=== PATIENT | male | born 1945 | race Caucasian/White ===

== ENCOUNTER 2016-05-23 05:48 | Emergency (ER) | payer MEDICARE ==
[2016-05-23 05:59] VITALS: RESP 18
[2016-05-23] MEDS ORDERED: MORPHINE SULFATE 4 MG/ML SYRINGE IV STA (06:17)
[2016-05-23] MEDS ORDERED: KETOROLAC 30 MG/ML 1 ML VIAL IVP STA (06:17)
--- NOTE | 2016-05-23 06:24 | ED ---
Abdominal Pain HPI - General Source: patient Mode of arrival: ambulatory Limitations: no limitations - History of Present Illness MD Complaint: flank pain -: days(s) Location: R flank Radiation: none Migration to: no migration Severity: moderate Quality: sharp Consistency: constant Improves With: nothing Worsens With: nothing Associated Symptoms: denies other symptoms <Ean Abbasi - Last Filed: 05/23/16 06:18> <Florentino Hartman - Last Filed: 05/23/16 09:52> - General Chief Complaint: Abdominal Pain Stated Complaint: Possible Kidney Stone Time Seen by Provider: 05/23/16 06:10 - History of Present Illness Initial Comments: 's patient is 70-year-old man with history of previous kidney stones, who states that he started having similar symptoms this morning when he got up to go to the gym. The patient notes right flank pain, that he states is sharp, constant, moderately intense. The pain is worse if he sits with his back against something. He has not noted any relieving factors. No coming symptoms. He has not had any fever or chill, chest pain, cough, shortness of breath, abdominal pain, nausea, vomiting, or change in bowel movements. Patient denies any pain or weakness to the legs. (Ean Abbasi) - Related Data Home Medications Medication Instructions Recorded Confirmed Multivitamins, Thera [Theragran] 1 tab PO DAILY 08/05/14 05/23/16 Omeprazole 20 mg PO DAILY PRN 06/17/15 05/23/16 Doxycycline Hyclate [Vibramycin] 100 mg PO BID 05/23/16 05/23/16 Fish Oil/Dha/Epa [Fish Oil 1,200 1 cap PO DAILY 05/23/16 05/23/16 mg Fish Oil] Previous Rx's Medication Instructions Recorded Hydrocodone/Acetaminophen [[place] 2 each PO Q6HR PRN #20 tab 05/23/16 5-325] Allergies Allergy/AdvReac Type Severity Reaction Status Date / Time No Known Allergies Allergy Verified 05/23/16 07:55 Review of Systems ROS Other: All systems not noted in ROS Statement are negative. Constitutional: Denies: fever, chills Respiratory: Denies: cough, dyspnea Cardiovascular: Denies: chest pain, palpitations, edema Gastrointestinal: Reports: as per HPI. Denies: abdominal pain, nausea, vomiting , diarrhea Genitourinary: Denies: dysuria, hematuria, testicular pain Musculoskeletal: Reports: as per HPI, back pain Skin: Denies: rash Neurological: Denies: weakness, numbness, paresthesias <AyleenEan - Last Filed: 05/23/16 06:18> ROS Other: All systems not noted in ROS Statement are negative. <Florentino Hartman - Last Filed: 05/23/16 09:52> ROS Statement: Those systems with pertinent positive or pertinent negative responses have been documented in the HPI. 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, prostate cancer tx with radiation History of Any Multi-Drug Resistant Organisms: None Reported MDRO Source:: "MRSA carrier in blood tests" Past Surgical History: Ear Surgery, Hernia Repair, Orthopedic Surgery Additional Past Surgical History / Comment(s): brain surgery to remove benign tumors, alannah knee arthroscopic, rt knee replacement, surgery for fx facial bone Past Anesthesia/Blood Transfusion Reactions: Motion Sickness, Postoperative Nausea & Vomiting (PONV) Past Psychological History: No Psychological Hx Reported Smoking Status: Never smoker Past Alcohol Use History: Occasional Past Drug Use History: None Reported - Past Family History Mother Family Medical History: Cancer <AyleenEan - Last Filed: 05/23/16 06:18> General Exam Limitations: no limitations General appearance: alert, in no apparent distress Head exam: Present: atraumatic, normocephalic Respiratory exam: Present: normal lung sounds bilaterally. Absent: respiratory distress, wheezes, rales, rhonchi, stridor Cardiovascular Exam: Present: regular rate, normal rhythm, normal heart sounds. Absent: systolic murmur, diastolic murmur, rubs, gallop GI/Abdominal exam: Present: soft. Absent: distended, tenderness, guarding, rebound, mass, pulsatile mass, hernia Back exam: Present: CVA tenderness (R). Absent: full ROM, tenderness, CVA tenderness (L) Neurological exam: Present: alert Skin exam: Present: warm, dry, intact, normal color. Absent: rash <Ean Abbasi - Last Filed: 05/23/16 06:18> Medical Decision Making <Ean Abbasi - Last Filed: 05/23/16 06:18> - Lab Data Result diagrams: 05/23/16 06:51 05/23/16 06:51 - Radiology Data Radiology results: report reviewed (Computed tomography scan abdomen pelvis shows nonobstructing bilateral renal stones. ), image reviewed (KUB shows no acute process) <Florentino Hartman - Last Filed: 05/23/16 09:52> - Medical Decision Making Patient twice reexamined and symptom-free. Patient complains of discomfort below the right CVA region. There is minimal tenderness there. No abdominal tenderness. Pedal pulses 2/4 bilateral. Patient and family updated on results and need for follow-up. Also updated on mild elevation of lipase. (Florentino Hartman) - Lab Data Lab Results 05/23/16 05/23/16 05/23/16 Range/Units 06:51 06:51 07:37 WBC 3.8 (3.8-10.6) k/uL RBC 4.77 (4.30-5.90) m/uL Hgb 15.7 (13.0-17.5) gm/dL Hct 45.4 (39.0-53.0) % MCV 95.3 (80.0-100.0) fL MCH 33.0 (25.0-35.0) pg MCHC 34.6 (31.0-37.0) g/dL RDW 12.8 (11.5-15.5) % Plt Count 142 L (150-450) k/uL Neutrophils % 63 % Lymphocytes % 27 % Monocytes % 6 % Eosinophils % 1 % Basophils % 1 % Neutrophils # 2.4 (1.3-7.7) k/uL Lymphocytes # 1.0 (1.0-4.8) k/uL Monocytes # 0.2 (0-1.0) k/uL Eosinophils # 0.0 (0-0.7) k/uL Basophils # 0.0 (0-0.2) k/uL Sodium 144 (137-145) mmol/L Potassium 4.8 (3.5-5.1) mmol/L Chloride 109 H (98-107) mmol/L Carbon Dioxide 23 (22-30) mmol/L Anion Gap 12 mmol/L BUN 36 H (9-20) mg/dL Creatinine 1.04 (0.66-1.25) mg/dL Est GFR (MDRD) Af Amer >60 (>60 ml/min/1.73 sqM) Est GFR (MDRD) Non-Af >60 (>60 ml/min/1.73 sqM) Glucose 96 (74-99) mg/dL Calcium 10.0 (8.4-10.2) mg/dL Total Bilirubin 0.7 (0.2-1.3) mg/dL AST 36 (17-59) U/L ALT 31 (21-72) U/L Alkaline Phosphatase 70 (38-126) U/L Total Protein 7.4 (6.3-8.2) g/dL Albumin 4.4 (3.5-5.0) g/dL Amylase 79 (30-110) U/L Lipase 323 H (23-300) U/L Urine Color Dark Yellow Urine Appearance Cloudy (Clear) Urine pH 6.0 (5.0-8.0) Ur Specific [place] 1.031 (1.001-1.035) Urine Protein 1+ H (Negative) Urine Glucose (UA) Negative (Negative) Urine Ketones Negative (Negative) Urine Blood Negative (Negative) Urine Nitrite Negative (Negative) Urine Bilirubin Negative (Negative) Urine Urobilinogen <2.0 (<2.0) mg/dL Ur Leukocyte Esterase Negative (Negative) Urine RBC 6 H (0-5) /hpf Ur Squamous Epith Cells 1 (0-4) /hpf Calcium Oxalate Crystal Few H (None) /hpf Amorphous Sediment Rare H (None) /hpf Urine Mucus Many H (None) /hpf Disposition <Ean Abbasi - Last Filed: 05/23/16 06:18> <Florentino Hartman - Last Filed: 05/23/16 09:52> Clinical Impression: Flank pain Disposition: HOME SELF-CARE Condition: Stable Instructions: Abdominal Pain (ED), Back Pain (ED) Additional Instructions: Please follow-up with your primary care physician in the next day or 2 for recheck. Please have your primary care physician review labs and CT report done today. Also have your doctor follow-up with mild elevation of lipase. Return for increased pain, fevers, vomiting, worsening or changing symptoms or other concerns. Prescriptions: Hydrocodone/Acetaminophen [[place] 5-325] 2 each PO Q6HR PRN #20 tab PRN Reason: Pain Referrals: Eliel Garza MD [Primary Care Provider] - 1-2 days
[2016-05-23 07:03] LABS: Basophils % (A) 1 %; CH 33.6; CHCM 35.5; Eosinophils % (A) 1 %; HCT 45.4 % (39.0-53.0); HDW 2.71; HGB 15.7 gm/dL (13.0-17.5); Luc % (Auto) 3; Lymphocytes % (A) 27 %; MCHC 34.6 g/dL (31.0-37.0); MCV 95.3 fL (80.0-100.0); Mean Platelet Volume 8.2; Monocytes # (A) 0.2 k/uL (0-1.0); Monocytes % (A) 6 %; Neutrophils # (A) 2.4 k/uL (1.3-7.7); Neutrophils % (A) 63 %; RBC 4.77 m/uL (4.30-5.90); RDW 12.8 % (11.5-15.5); WBC 3.8 k/uL (3.8-10.6); WBC (Perox) 3.85
--- NOTE | 2016-05-23 07:17 | XR ---
EXAMINATION TYPE: XR KUB DATE OF EXAM: 05/23/2016 7:01 AM CLINICAL DATA: 70-year-old male with abdominal pain, PH[facility] COMPARISON: FINDINGS: Lung bases are clear. No evidence for free intraperitoneal air. No dilated small bowel or air-fluid levels. Scattered air and stool seen throughout the colon extendi ng distally into the rectum. Moderate stool burden. No suspicious calcifications identified. IMPRESSION: Moderate stool burden. No evidence of bowel obstruction or free intraperitoneal air.
[2016-05-23 07:20] LABS: Amylase 79 U/L (30-110); Anion Gap 12 mmol/L; Carbon Dioxide 23 mmol/L (22-30); Chloride 109 mmol/L (98-107); Glucose 96 mg/dL (74-99); Non-African American GFR(MDRD) >60 (>60 ml/min/1.73 sqM); Sodium 144 mmol/L (137-145); Total Bilirubin 0.7 mg/dL (0.2-1.3); Total Protein 7.4 g/dL (6.3-8.2)
[2016-05-23 07:22] LABS: Blood Urea Nitrogen 36 mg/dL (9-20); Potassium 4.8 mmol/L (3.5-5.1)
[2016-05-23 07:23] LABS: ALT 31 U/L (21-72); AST 36 U/L (17-59); Alkaline Phosphatase 70 U/L (38-126)
[2016-05-23 08:11] LABS: Amorphous Sediment,Urine Rare /hpf; Appearance,Urine Cloudy (Clear); Bilirubin,Urine Negative (Negative); Calcium Oxalate Crystals,Urine Few /hpf; Glucose,Urine (UA) Negative (Negative); Ketones,Urine Negative (Negative); Leukocyte Esterase,Urine Negative (Negative); Mucus,Urine Many /hpf; Nitrite,Urine Negative (Negative); Particle Count 11793; Protein,Urine 1+ (Negative); RBC,Urine 6 /hpf (0-5); Specific Gravity,Urine 1.031 (1.001-1.035); Squamous Epithelial Cell,Urine 1 /hpf (0-4); UA Billing (MACRO vs. MICRO) MICRO; Urobilinogen,Urine <2.0 mg/dL (<2.0)
[2016-05-23 09:10] VITALS: PULSE 44
--- NOTE | 2016-05-23 09:33 | CT ---
EXAMINATION TYPE: CT abdomen pelvis wo con DATE OF EXAM: 05/23/2016 8:54 AM COMPARISON: NONE INDICATION: Pain DLP: 1087 mGycm, Automated exposure control for dose reduction was used. CONTRAST: 0 mL of Omnipaque 300. Study performed without Oral Contrast TECHNIQUE: Axial images were obtained from above the diaphragm to the pubic rami in the axial plane a t 5 mm thick sections. Reconstructed images are reviewed on the computer in the coronal plane. FINDINGS: Limited CT sections are obtained the lung bases. Mild compressive atelectasis is within the dependen t portions of the lung bases bilaterally.. CT ABDOMEN: Liver: Normal Spleen: Normal Pancreas: Normal Adrenal glands: The adrenal glands are normal. Gallbladder: Normal Kidneys: No masses are evident. No hydronephrosis is present. There are 2 hypodensities on the supe rior pole left kidney measuring 0.9 cm. Small cyst too small to classify are likely present. There is a cyst measuring 1.3 cm and one Hounsfield unit on the inferior medial right kidney compatible with a simple cyst. A 1.3 cm cyst measuring 0 Hounsfield unit is within the anterior mid right kidney. Fo ur punctate calcifications are within the inferior pole of the right kidney measuring 0.3, 0.3, 0.3, and 0.2 cm in size. Two punctate calcifications are also within the inferior pole left kidney measuri ng 0.3 and 0.2 cm in size. No hydronephrosis or hydroureter is evident. Aorta: Vascular calcification is within the aorta. Inferior vena cava: Normal. CT PELVIS: Loops of bowel within the abdomen and pelvis are normal. Fecal debris is within the colon. Appendix: Normal as visualized. Urinary bladder: Decompressed with limited evaluation. Genitourinary structures: Prostate is normal Osseous structures: No suspicious lytic or sclerotic lesions. Facet changes are within the lower lumb ar spine IMPRESSIONS: 1. Nonobstructing bilateral renal stones. 2. Simple Cysts and suspected cysts, too small to classify, within the bilateral kidneys
[2016-05-23 11:23] VITALS: BP 118/58; TEMP 97
== END 2016-05-23 10:14 | disposition home or self-care (01) ==
LOC: EC 05:48
DX: R10.9 Unspecified abdominal pain (principal); M54.9 Dorsalgia, unspecified; R74.8 Abnormal levels of other serum enzymes; Z79.899 Other long term (current) drug therapy; Z87.442 Personal history of urinary calculi
CPT/HCPCS: 36415; 80053; 82150; 85025; 81001; 74000; 83690; 74176; 99284; 96374; 96375; J2270; J1885

== ENCOUNTER → 2016-06-01 | Outpatient (CLI) | payer MEDICARE ==
--- NOTE | 2016-06-01 21:27 | US ---
EXAMINATION TYPE: US scrotum with doppler. Grayscale and color Doppler Duplex imaging performed of jessie adam scrotum. DATE OF EXAM: 06/01/2016 5:14 PM COMPARISON: NONE CLINICAL HISTORY: N50.812 Left testicular pain. Intermittent left testicular pain EXAM MEASUREMENTS: TESTICLES: Right Testicle: 3.8 x 2.0 x 1.9 cm Left Testicle: 3.5 x 1.6 x 1.9 cm EPIDIDYMIS HEAD: Right Epididymis: 0.8 x 1.1 x 1.3 cm Left Epididymis: 0.8 x 0.8 x 1.2 cm Doppler performed to assess for testicular vascularity; good bilateral arterial color flow seen, good venous flow seen within left testicle, unable to obtain venous flow within right testicle. Presence of hydroceles: right 5.8cm, left 1.8cm Presence of varicoceles: prominent vessels seen lateral to left testicle IMPRESSION: Left varicoceles. Hydrocele is present.
== END ==
LOC: RADUSWWP 16:49
PROVIDERS: ATTEND Family Medicine
DX: I86.1 Scrotal varices (principal); N43.3 Hydrocele, unspecified
CPT/HCPCS: 76870; 93975

== ENCOUNTER → 2016-07-20 | Outpatient (CLI) | payer MEDICARE ==
--- NOTE | 2016-07-20 12:02 | ECHOS ---
DATE OF SERVICE: 07/20/2016 AGE: 70Y SEX: M HT: 71" WT: 204 lbs. Protocol Alden: X Others: Stress Echo Stage: 3 Dur. of Exercise: 8:15 *Heart Rate Blood Pressure *Rest: 58 Rest: 144/95 * *Max. Achieved: 134 Maximum BP: 191/89 85% PMHR: 128 100% PMHR: 151 *METS: 8.4 INDICATIONS: Abnormal EKG. MEDICATIONS: - Patient was exercised for a total period of 8 minutes and 15 seconds. The peak heart rate of 134 was achieved. Maximum blood pressure of 191/89 mmHg was noted. A resting EKG shows normal sinus rhythm with a QRS morphology suggestive of left bundle branch block pattern was noted during exercise. Occasional PACs and PVCs were noted. The baseline echocardiographic images reveal normal left ventricular chamber size with atypical septal motion. In the immediate postexercise period, normal increase in the wall thickness and contractility was noted. There is no evidence of any significant wall motion abnormality to suggest stress-induced ischemia. FINAL IMPRESSION: 1. Stress echocardiographic study is not suggestive for stress-induced ischemia. There is atypical septal motion secondary to left bundle branch block pattern. 2. Intermittent premature ventricular contractions and premature atrial contractions were noted during exercise. 3. Patient's exercise tolerance is normal.
== END | disposition home or self-care (01) ==
LOC: RADNMMAIN 10:34
PROVIDERS: ATTEND Family Medicine
DX: I44.7 Left bundle-branch block, unspecified (principal); I49.2 Junctional premature depolarization
CPT/HCPCS: 93017; 93350

== ENCOUNTER → 2016-12-27 | Outpatient (CLI) | payer MEDICARE ==
--- NOTE | 2016-12-27 15:59 | XR ---
EXAMINATION TYPE: XR KUB DATE OF EXAM: 12/27/2016 3:44 PM CLINICAL HISTORY: Bilateral nephrolithiasis TECHNIQUE: Single supine KUB image of the abdomen is obtained. COMPARISON: Renal ultrasound dated 12/27/[address] abdomen dated 05/27/2016. FINDINGS: Scattered gas is seen in non-distended small bowel loops. The 4 punctate calculi that were 3 mm or less on the prior CT of 05/23/2016 on the right and the 2 punctate calculi on the left that we re 3 mm or less are not visualized on today's examination. This may be partially related to moderate amount of overlying colonic stool and possibly related to the small size of the calculi. Alternativel y these calculi may have passed in the interim. No abnormal calcification is seen along the course of the ureters or within the pelvis in the region of the urinary bladder. Moderate degenerative changes of the lumbosacral joints and femoral acetabular joints are noted. Gas and fecal material is seen in non-distended colon. The lung bases are clear and the osseous structure s are intact. IMPRESSION: 1. The known bilateral punctate renal calculi are not identified radiographically. This may be partia lly related to overlying colonic stool, small size, or they may have been passed in the interim. 2. Moderate amount of retained colonic stool in a nonobstructive bowel gas pattern.
--- NOTE | 2016-12-27 16:35 | US ---
EXAMINATION TYPE: US kidneys/renal and bladder DATE OF EXAM: 12/27/2016 COMPARISON: NONE CLINICAL HISTORY: 71-year-old male N20.0 Calculus Of Kidney. TECHNIQUE: Multiple sonographic images of the kidneys and bladder were obtained. FINDINGS: Right Kidney: 12.5 x 4.1 x 4.9cm without hydronephrosis. Cortical cysts are noted, largest at the m id pole measuring 1.5 cm. 3 adjacent echogenic foci are present in the lower pole measuring up to 3 m m each. Left Kidney: 11.8 x 5.0 x 4.4cm without hydronephrosis. The [facility] surgeon indicates an echogenic focus at the mid to lower pole which could represent a calculus. This is not as well demonstrated on the pr ovided images. No gross abnormality of the partially urine distended bladder. IMPRESSION: 1. No hydronephrosis. 2. There are 3 nonobstructive calculi measuring up to 3 mm in the right lower pole. 3. Possible additional nonobstructive calculi in the mid to lower pole left kidney. This is seen by t kia mohs surgeon during real-time scanning but not as well depicted on the provided images.
== END | disposition home or self-care (01) ==
LOC: RADUSWWP 14:37
PROVIDERS: ATTEND Urology
DX: N20.0 Calculus of kidney (principal)
CPT/HCPCS: 74000; 76770

== ENCOUNTER → 2017-01-23 | Outpatient (CLI) | payer MEDICARE ==
[2017-01-23 09:14] LABS: Calcium 10.3 mg/dL (8.4-10.2); Carbon Dioxide 28 mmol/L (22-30); Chloride 105 mmol/L (98-107); Non-African American GFR(MDRD) >60 (>60 ml/min/1.73 sqM); Phosphorus 2.7 mg/dL (2.5-4.5); Uric Acid 5.2 mg/dL (3.5-8.5)
[2017-01-23 09:44] LABS: Prostate Specific Antigen 0.58 ng/mL (0.00-4.00)
== END | disposition home or self-care (01) ==
LOC: LABWHC1 07:02
PROVIDERS: ATTEND Urology
DX: C61 Malignant neoplasm of prostate (principal); N20.0 Calculus of kidney
CPT/HCPCS: 36415; 82310; 82374; 82435; 82565; 83970; 84100; 84153; 84550